=== PATIENT | male | born 1995 | race Caucasian/White ===

== ENCOUNTER 2019-12-12 12:09 | Emergency (ER) | payer SELFPAY ==
[2019-12-12 12:15] VITALS: BP 126/89; PULSE 82; RESP 18; TEMP 35.6; O2SAT 99
[2019-12-12 12:27] VITALS: TEMP 36.4
--- NOTE | 2019-12-12 12:27 | ED.SKABFB ---
HPI - Skin/Abscess/Foreign Bdy General Chief complaint: Skin/Abscess/Foreign Body Stated complaint: FISH HOOK IN FINGER Time Seen by Provider: 12/12/19 12:21 Source: patient and RN notes reviewed Mode of arrival: ambulatory Limitations: no limitations History of Present Illness HPI narrative: Patient presents today complaining of a fishhook to his left 4th finger. Hook has been embedded for ~45 mins. No pain at rest, but increases with touching. Patient tried to remove the hook himself without success. Not UTD on his tetanus vaccine. Related Data Allergies Allergy/AdvReac Type Severity Reaction Status Date / Time No Known Allergies Allergy Unknown Verified 12/12/19 12:14 Review of Systems Review of Systems: Narrative: CONSTITUTIONAL: Denies body aches, fever, chills, or sweats. EYES: Denies visual changes, redness, or discharge. ENT: Denies rhinorrhea, congestion, sore throat, or otalgia. CARDIOVASCULAR: Denies chest pain, palpitations, or edema. RESPIRATORY: Denies cough or dyspnea. GASTROINTESTINAL: Denies abdominal pain, nausea, vomiting, or diarrhea. GENITOURINARY: Denies dysuria or hematuria. SKIN: Denies rash, itching. + [place] embedded in left finger MUSCULOSKELETAL: Denies back pain, joint pain, or myalgia. NEUROLOGIC: Denies headache, numbness, tingling, or weakness. PSYCH: Denies depression or anxiety. [facility] Family History Family History (Updated 03/22/11 @ 15:45 by DOCTOR UNKNOWN) Other Diabetes mellitus Comments At time of signature, I have reviewed and agree with nursing past medical, surgical, social and family history unless otherwise noted. Please see nursing chart for further information. There is no relevant family history pertinent to the presenting complaint Exam Narrative: Exam Narrative: GENERAL: Well-appearing, well-nourished, and in no acute distress. HEAD: Normocephalic, atraumatic. EYES: EOMI. No redness or drainage. Conjunctivae normal. ENT: Mucous membranes pink and moist. NECK: Normal AROM. . CHEST: No respiratory distress. EXTREMITIES: Normal range of motion. No edema. SKIN: Warm, dry, no rash. Capillary refill normal. Normal skin turgor. Embedded fish hook in distal tip of left 4th finger. NEURO: No focal deficits. Alert and oriented x3. Gait steady. PSYCH: Normal affect. No signs of depression or anxiety. Course Vital Signs Vital signs: Vital Signs Temperature 96.0 F L 12/12/19 12:15 Pulse Rate 82 12/12/19 12:15 Respiratory Rate 18 12/12/19 12:15 Blood Pressure 126/89 12/12/19 12:15 Pulse Oximetry 99 12/12/19 12:15 Temperature 97.6 F 12/12/19 12:27 Pulse Rate 82 12/12/19 12:15 Respiratory Rate 18 12/12/19 12:15 Blood Pressure 126/89 12/12/19 12:15 Pulse Oximetry 99 12/12/19 12:15 Reviewed. Pt has been instructed to follow up with his PCP regarding his elevated blood pressure today. Procedures Foreign Body Removal Foreign Body #1: Foreign Body Removal Date: 12/12/19 Foreign Body Removal Time: 12:57 Time Out Performed: yes Site: left and upper extremity Description of foreign body: fish hook Sedation/Analgesia: none Technique: manual removal and incision made to facilitate removal Confirmed by:: direct visualization Complications: none Neurovascular: normal capillary fill and distal motor function normal Foreign Body Removal Narrative: Finger was digitally blocked with 1% lidocaine prior to procedure. MDM - Skin/Abscess/Foreign Bdy Differential Diagnosis Differential diagnosis: Likely other (Embedded foreign body, skin avulsion, laceration) Critical Care Time Critical Care Time Critical Care Time: No Discharge Plan Discharge Clinical Impression: Embedded acrylics fragments Patient Disposition: Home, Self-Care Condition: Stable Instructions: Antibiotic Form, Soft Tissue Foreign Body (ED) Additional Instructions: The fishhook was rem
[2019-12-12] MEDS: TETANUS,DIPHTHERIA,AC PERTUSSIS ADULT (0.5 ML) BOOSTRIX IM (12:44)
== END 2019-12-12 13:00 | disposition home or self-care (01) ==
PROVIDERS: Emergency Provider Nurse Practitioner
DX: S61.245A Puncture wound with foreign body of left ring finger without damage to nail, initial encounter (principal); X58.XXXA Exposure to other specified factors, initial encounter; Z23 Encounter for immunization
CPT/HCPCS: 10120; 90471; 90715; 99213; G0463

== ENCOUNTER 2022-05-17 11:21 | Emergency (ER) | payer SELFPAY ==
--- NOTE | ~2022-05-17 | XR_ITS ---
Right ankle Technique: AP, oblique, and lateral views were obtained. Clinical History: Pain Findings: No acute fracture or dislocation is seen. Mild degenerative change noted at the dorsal aspe ct of the talonavicular joint. Ankle mortise and other visualized joint spaces are preserved. Soft t issues are otherwise unremarkable. Impression: Mild degenerative change dorsal aspect of the talonavicular joint. No fracture or dislocation. Reviewed, dictated and finalized at location [] [facility] Impression: Mild degenerative change dorsal aspect of the talonavicular joint. No fracture or dislocation.
[2022-05-17 12:21] VITALS: BP 139/77; PULSE 75; RESP 16; TEMP 36.4; O2SAT 99
--- NOTE | 2022-05-17 12:54 | ED.LOWEXIN ---
HPI - Extremity Injury (Lower) General Chief Complaint: Extremity Injury, Lower Stated Complaint: Right Ankle Pain Source: patient and family (, son ) Mode of arrival: ambulatory Limitations: no limitations History of Present Illness HPI Narrative: 26-year-old male presents to [facility] for complaints of pain to the lateral aspect of his right ankle since falling at his home yesterday. Patient Reports that he fell in his garage and twisted his right ankle. Patient has not tried taking any [id number] medication but has been applying ice to his ankle. MD complaint: ankle injury Onset (ago): day(s) (1) Injury: Right: ankle Type of Injury: inversion Place: home Exacerbating factors: movement Context: fall Associated symptoms: swelling Other symptoms: none Treatments prior to arrival: cold therapy Related Data Allergies Allergy/AdvReac Type Severity Reaction Status Date / Time No Known Allergies Allergy Unknown Verified 05/17/22 12:23 Review of Systems Constitutional: Constitutional: Denies chills, Denies fatigue and Denies fever(s) Gastrointestinal: Gastrointestinal: Denies diarrhea, Denies nausea and Denies vomiting Musculoskeletal: Musculoskeletal: Reports arthralgias and Reports joint swelling Comments: right ankle pain and swelling Integumentary/Breasts: Skin/Breast: Denies rash Allergic/Immunologic: Allergic/Immunologic: Denies lip swelling, Denies throat swelling and Denies tongue swelling PMFSH Family History Family History Other Diabetes mellitus Comments At time of signature, I agree with nursing past medical, surgical, social and family history. There is no relevant family history pertinent to the presenting complaint. Exam Const: General: healthy appearing and no acute distress Nutritional Appearance: well nourished Orientation/consciousness: patient oriented x3 Limitations: no limitations Neck: Neck: normal visual inspection Resp: Effort & Inspection: normal respiratory effort and not labored Auscultation: clear to auscultation bilaterally, no crackles, no rales and no rhonchi Cardio: Rate: regular rate Rhythm: regular rhythm Heart sounds: no murmurs Skin: General skin exam: normal color Wounds: no wounds Neuro: General: patient oriented x3 Speech: normal speech Extrem: Other: mild swelling noted to right lateral malleolus. Increased pain noted to right ankle with range of motion. Pulses are within normal limits. No erythema, bruising or signs of infection noted Psych: Affect: normal affect Attitude: cooperative Course Course Level of Care: [facility] Care Visit Vital Signs Vital signs: Vital Signs Temperature 36.4 C L 05/17/22 12:21 Pulse Rate 75 05/17/22 12:21 Respiratory Rate 16 05/17/22 12:21 Blood Pressure 139/77 05/17/22 12:21 Pulse Oximetry 99 05/17/22 12:21 Oxygen Delivery Room Air 05/17/22 12:21 Temperature 36.4 C L 05/17/22 12:21 Pulse Rate 75 05/17/22 12:21 Respiratory Rate 16 05/17/22 12:21 Blood Pressure 139/77 05/17/22 12:21 Pulse Oximetry 99 05/17/22 12:21 Oxygen Delivery Room Air 05/17/22 12:21 MDM - Extremity Injury (Lower) MDM Narrative Medical decision making narrative: discussed x-ray results of Right ankle. Armando wrap was applied to right ankle per nursing staff. Rice therapy discussed with patient and . patient agrees to follow-up with orthopedics or primary care provider if symptoms Do not improved. Differential Diagnosis Differential diagnosis: Likely other ( cellulitis, fracture, abrasion) Imaging Data Radiologist's impression: per radiologist, right ankle x-ray shows no acute finding, notes mild arthritic changes Critical Care Time Critical Care Time Critical Care Time: No Discharge Plan Discharge Clinical Impression: Ankle sprain and strain Patient Disposition: Home, Self-Care Condition: Stable Instructio
== END 2022-05-17 13:08 | disposition home or self-care (01) ==
PROVIDERS: Emergency Provider Nurse Practitioner Family
DX: S93.401A Sprain of unspecified ligament of right ankle, initial encounter (principal); S96.911A Strain of unspecified muscle and tendon at ankle and foot level, right foot, initial encounter; W19.XXXA Unspecified fall, initial encounter
CPT/HCPCS: 73610; 99213; G0463

== ENCOUNTER 2023-06-27 16:15 | Emergency (ER) | payer OTHER, SELFPAY ==
[2023-06-27 16:31] VITALS: BP 148/77; PULSE 81; RESP 16; TEMP 36.7; O2SAT 99
--- NOTE | 2023-06-27 17:02 | ED.GENADULT ---
HPI - General Adult General Chief complaint: Urogenital-Male Stated complaint: Male Problems Time Seen by Provider: 06/27/23 16:50 Source: patient and RN notes reviewed Mode of arrival: ambulatory Limitations: no limitations History of Present Illness HPI narrative: Patient presents today with approximately 1 week history of left lower quadrant pain extending to the left testicle. States the symptoms are exacerbated by bending or straining while working. Symptoms are worse at the end of the day as well. Believes he may have a hernia. Denies redness or swelling of the testicle. Denies urinary symptoms. He is also complaining of intermittent blood in his stool over the last month, approximately 3-4 times. Last episode while as 3 days ago. Denies pain when passing stool. Does have history of hemorrhoids. Related Data Home Medications Medication Instructions Recorded Confirmed No Home Medications 06/27/23 06/27/23 Allergies Allergy/AdvReac Type Severity Reaction Status Date / Time No Known Allergies Allergy Unknown Verified 05/17/22 12:23 Review of Systems Review of Systems: CONSTITUTIONAL: Denies body aches, fever, chills, or sweats. EYES: Denies visual changes, redness, or discharge. ENT: Denies rhinorrhea, congestion, sore throat, or otalgia. CARDIOVASCULAR: Denies chest pain, palpitations, or edema. RESPIRATORY: Denies cough or dyspnea. GASTROINTESTINAL: Denies nausea, vomiting, or diarrhea.+ bright red blood in stool, abdominal pain, testicular pain GENITOURINARY: Denies dysuria or hematuria. SKIN: Denies rash, itching, or wounds. MUSCULOSKELETAL: Denies back pain, joint pain, or myalgia. NEUROLOGIC: Denies headache, numbness, tingling, or weakness. PSYCH: Denies depression or anxiety. [facility], [facility] Family History Family History (Reviewed 06/27/23 @ 17:06 by Ana M Renee, [facility] [place], ) Other Diabetes mellitus Comments At time of signature, I have reviewed and agree with nursing past medical, surgical, social and family history unless otherwise noted. Please see nursing chart for further information. There is no relevant family history pertinent to the presenting complaint Exam Narrative: GENERAL: Well-appearing, well-nourished, and in no acute distress. HEAD: Normocephalic, atraumatic. EYES: EOMI. No redness or drainage. Conjunctivae normal. ENT: Mucous membranes pink and moist. NECK: Normal AROM. CHEST: No respiratory distress. Clear to auscultation. HEART: Regular rate and rhythm. No murmur appreciated. Normal peripheral pulses. ABDOMEN: Soft, nondistended, normal active bowel sounds. Mild tenderness of the bilateral lower quadrants. No rebound or guarding. No palpable hernias noted. Deferred testicular exam. EXTREMITIES: Normal range of motion. No edema. SKIN: Warm, dry, no rash. Capillary refill normal. Normal skin turgor. NEURO: No focal deficits. Alert and oriented x3. Gait steady. PSYCH: Normal affect. No signs of depression or anxiety. Course Course Level of Care: [facility] Care Visit Vital Signs Vital signs: Vital Signs Temperature 98.1 F 06/27/23 16:31 Pulse Rate 81 06/27/23 16:31 Respiratory Rate 16 06/27/23 16:31 Blood Pressure 148/77 H 06/27/23 16:31 Pulse Oximetry 99 06/27/23 16:31 Oxygen Delivery Room Air 06/27/23 16:31 Temperature 98.1 F 06/27/23 16:31 Pulse Rate 81 06/27/23 16:31 Respiratory Rate 16 06/27/23 16:31 Blood Pressure 148/77 H 06/27/23 16:31 Pulse Oximetry 99 06/27/23 16:31 Oxygen Delivery Room Air 06/27/23 16:31 Reviewed Medical Decision Making MDM Narrative Medical decision making narrative: Due to patient's symptoms and exam, I feel it indicated to transfer him to the ER for further evaluation. He has declined this time. He will sign AMA paperwork. Differential Diagnosis Differential Diagnosis: Hernia, diverticulitis, appendicitis, anal fissure, hemorrhoid, ulcerative colitis, Crohn's disease
== END 2023-06-27 17:16 | disposition left against medical advice (07) ==
PROVIDERS: Emergency Provider Nurse Practitioner
DX: R10.32 Left lower quadrant pain (principal); R10.31 Right lower quadrant pain; K92.1 Melena
CPT/HCPCS: 99211; G0463

== ENCOUNTER 2023-06-28 12:35 | Emergency (ER) | payer OTHER, SELFPAY ==
--- NOTE | ~2023-06-28 | CT_ITS ---
EXAMINATION: CT abdomen pelvis w con DATE: 06/28/2023 15:06 INDICATION: left lower quadrant pain TECHNIQUE: Computed tomography (CT) of the abdomen and pelvis was performed with intravenous contrast . Automated exposure control and iterative reconstruction technique were employed. The dose-length pr oduct was 815.48 mGy-cm. COMPARISON: None. FINDINGS: Lower thorax: Unremarkable Liver: Normal. Biliary/Gallbladder: Gallbladder is collapsed which limits evaluation, without inflammatory changes. No bile duct dilation. Pancreas: No mass or duct dilation. Spleen: Normal. Adrenals:No mass. Kidneys: No suspicious mass, obstructing stone, or hydronephrosis. GI tract: No small or large bowel dilation. Normal appendix. Mesentery/Peritoneum: No ascites or mass. Prominent central mesenteric lymph nodes with fat halos and surrounding inflammatory change. Retroperitoneum: No mass. Pelvis: Pelvic organs are within normal limits. Soft Tissues: Soft tissues and body wall unremarkable. Bones: No acute osseous finding. IMPRESSION: Mesenteric panniculitis. Otherwise unremarkable CT abdomen and pelvis findings. Reviewed, dictated and finalized at location K. [facility] [employer] TESTER
[2023-06-28 12:36] VITALS: BP 149/80; PULSE 75; RESP 20; TEMP 36.4; O2SAT 100
[2023-06-28 12:56] LABS: Basophils Percent Auto 0.5 % (0.2-1.2); Eosinophils Absolute Auto 0.1 K/mm3 (0-0.3); Eosinophils Percent Auto 0.9 % (0-4.4); Hematocrit 45.7 % (42.0-52.0); Hemoglobin 14.8 g/dL (14.0-18.0); Immature Granulocyte Absolute 0.01 K/mm3 (0.00-0.031); Immature Granulocyte Percent A 0.2 % (0-0.5); Lymphocytes Percent Auto 36.6 % (18.3-44.2); Mean Corpuscular HGB Conc 32.4 g/dl (32-36); Mean Corpuscular Hemoglobin 28.2 pg (26-34); Mean Platelet Volume 9.7 fl (7.4-10.4); Monocytes Absolute Auto 0.5 K/mm3 (0.1-0.6); Monocytes Percent Auto 8.4 % (2.6-8.5); Neutrophils Absolute Auto 2.9 K/mm3 (1.3-6.7); Neutrophils Percent Auto 53.4 % (45.5-73.1); Platelet Count Result 223 k/mm3 (150-375); Red Blood Count 5.25 M/mm3 (4.6-6.20); Red Cell Distribution Width 12.7 % (11.5-14.5); White Blood Count 5.5 K/mm3 (4.5-10.0)
[2023-06-28 13:02] LABS: Appearance Urine Clear (Clear); Bilirubin Urine Negative (Negative); Blood Urine Negative (Negative); Color Urine Yellow (Yellow); Glucose Urine UA Negative (Negative); Ketones Urine Negative (Negative); Leukocyte Esterase Ur Negative LEU/UL (Negative); Nitrate Urine Negative (Negative); Protein Urine Negative (Negative); Specific Grav Ur 1.018 (1.001-1.035); Urobilinogen Urine 0.2 mg/dL (<2.0)
[2023-06-28 13:04] LABS: Add Urine Microscopic? NO
[2023-06-28 13:06] LABS: Alanine Aminotransferase 47 U/L (6-50); Albumin Level 4.4 g/dL (3.5-5.1); Alkaline Phosphatase 59 U/L (38-126); Anion Gap 6 mmol/L (8-16); Aspartate Amino Transferase 38 U/L (17-59); Bilirubin,Total 0.4 mg/dL (0.2-1.3); Blood Urea Nitrogen 14 mg/dL (9-20); Calcium 9.4 mg/dL (8.4-10.2); Carbon Dioxide 27 mmol/L (22-30); Chloride 105 mmol/L (98-107); Estimated CRCL calculation 131 ml/min; Estimated Glomerular Filt Rate > 60; Glucose 93 mg/dL (65-110); Lipase 76 U/L (23-300); Sodium 138 mmol/L (137-145)
[2023-06-28 14:49] VITALS: BP 128/71; PULSE 70; RESP 15; O2SAT 99
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
[2023-06-28] MEDS: ONDANSETRON INJ 4 MG/2 ML VIAL IV PUSH (16:04)
[2023-06-28] MEDS: MORPHINE SULFATE (*CRX) 4 MG/ML INJ IV PUSH (16:04)
[2023-06-28] MEDS: SODIUM CHLORIDE 0.9% IV 1,000 ML 999 ML IV CONT (16:04)
== END 2023-06-28 20:00 | disposition home or self-care (01) ==
PROVIDERS: Emergency Provider Emergency Medicine
DX: K65.4 Sclerosing mesenteritis (principal)
CPT/HCPCS: 36415; 74177; 80053; 81003; 83690; 85025; 96361; 96374; 96375; 99284; J2270; J2405; J7030; Q9967

== ENCOUNTER 2023-10-22 21:16 | Emergency (ER) | payer OTHER, SELFPAY ==
[2023-10-22 21:23] VITALS: BP 147/83; PULSE 91; RESP 17; TEMP 36.7; O2SAT 97
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
[2023-10-22] MEDS: IBUPROFEN 600 MG TABLET PO (22:01)
[2023-10-22] MEDS: HYDROcodone/acetaminophen (*CRX) 5-325 MG TABLET 1 TAB PO (22:01)
[2023-10-22] MEDS: CEPHALEXIN 500 MG CAPSULE PO (22:37)
[2023-10-22] MEDS: BACITRACIN OINTMENT 15 GM TUBE 1 APPLIC TOPICAL (22:38)
[2023-10-22 23:16] VITALS: BP 123/70; PULSE 90; RESP 18; O2SAT 97
== END 2023-10-22 23:18 | disposition home or self-care (01) ==
PROVIDERS: Emergency Provider Physician Assistant
DX: T25.212A Burn of second degree of left ankle, initial encounter (principal); T25.211A Burn of second degree of right ankle, initial encounter; T24.132A Burn of first degree of left lower leg, initial encounter; T24.131A Burn of first degree of right lower leg, initial encounter; T31.11 Burns involving 10-19% of body surface with 10-19% third degree burns; X03.0XXA Exposure to flames in controlled fire, not in building or structure, initial encounter
CPT/HCPCS: 99283; A9270

== ENCOUNTER 2024-03-13 14:57 | Emergency (ER) | payer OTHER, SELFPAY ==
[2024-03-13 15:06] VITALS: BP 131/76; PULSE 77; RESP 16; TEMP 36.7; O2SAT 100
--- NOTE | 2024-03-13 15:43 | ED.URI ---
HPI - URI/Sore Throat General Chief Complaint: Upper Respiratory Infection Stated Complaint: Sinus Time Seen by Provider: 03/13/24 16:15 History of Present Illness HPI Narrative: patient presents with 2 days of URI symptoms. He did have an episode of vomiting today, denies any abdominal pain. Denies any fever, chills, sweats. Does report that he has had some body aches. Has had a lot of sneezing and runny nose. He reports that his children were sick with similar illness earlier in the week and have recovered without a problem Related Data Allergies Allergy/AdvReac Type Severity Reaction Status Date / Time No Known Allergies Allergy Unknown Verified 03/13/24 15:45 Review of Systems Review of Systems: All systems reviewed & are unremarkable except as noted in HPI and below Constitutional: Constitutional: Reports no additional constitutional complaints, Reports body ache(s) and Reports chills ENT: Reports system reviewed and no additional complaints, except as documented, Reports nasal congestion and Reports nasal discharge Cardiovascular: Cardiovascular: Reports no additional cardiovascular complaints Respiratory: Respiratory: Reports no additional respiratory complaints and Reports cough Gastrointestinal: Gastrointestinal: Reports no additional gastrointestinal complaints, Denies abdominal pain, Reports nausea and Reports vomiting [facility] Family History Family History Other Diabetes mellitus Exam Const: General: cooperative, no acute distress, alert and awake Orientation/consciousness: oriented to person, oriented to place and oriented to time HENMT: Head: normal to inspection Ears: TM's normal bilaterally Mouth: Yes moist mucous membranes Throat: posterior oropharynx abnormal cobblestoning and erythema and postnasal drainage Resp: Effort & Inspection: normal respiratory effort and able to speak in complete sentences Auscultation: clear to auscultation bilaterally, no crackles, no rales, no rhonchi and no wheezes Cardio: Palpation: normal PMI Rate: regular rate Rhythm: regular rhythm Heart sounds: S1 normal heart sound present and S2 normal heart sound present GI: GI Palp: No abdominal tenderness Auscultation: normal bowel sounds Neuro: General: oriented to person, oriented to place and oriented to time Cranial nerves: Yes CN's II-XII intact bilaterally Psych: Appearance: grossly normal Thought process: Normal thought process present Insight: Good insight present (Psych) Judgement: Good judgement present (Psych) Course Course Level of Care: Express Care Visit Vital Signs Vital signs: Vital Signs Temperature 98.1 F 03/13/24 15:06 Pulse Rate 77 03/13/24 15:06 Respiratory Rate 16 03/13/24 15:06 Blood Pressure 131/76 03/13/24 15:06 Pulse Oximetry 100 03/13/24 15:06 Oxygen Delivery Room Air 03/13/24 15:06 Temperature 98.1 F 03/13/24 15:06 Pulse Rate 77 03/13/24 15:06 Respiratory Rate 16 03/13/24 15:06 Blood Pressure 131/76 03/13/24 15:06 Pulse Oximetry 100 03/13/24 15:06 Oxygen Delivery Room Air 03/13/24 15:06 MDM - URI/Sore Throat MDM Narrative Medical decision making narrative: negative COVID, negative flu. Likely viral illness, may have a component of allergic rhinitis. Discharge instructions reviewed with patient, as well as provided in writing per nursing staff. The instructions also include specific and strict return/GO TO THE ER as well as f/u information. All questions have been answered, and the patient deny any further questions with discharge and discharge plan. Some parts of this dictation were generated by voice recognition software and may contain typographical and/or grammatical inaccuracies. Differential Diagnosis Differential diagnosis: Likely upper respiratory infection, sinusitis, viral infection, influenza and pharyngitis Medical Records Attestation: I reviewed th
[2024-03-13 16:00] LABS: EDCOVIDSCREEN Negative (Negative); EDINFLUASCREEN Negative (Negative); EDINFLUBSCREEN Negative (Negative)
== END 2024-03-13 16:35 | disposition home or self-care (01) ==
PROVIDERS: Emergency Provider Nurse Practitioner Family
DX: J06.9 Acute upper respiratory infection, unspecified (principal); Z20.822 Contact with and (suspected) exposure to COVID-19
CPT/HCPCS: 87426; 87804; 99212; G0463